=== PATIENT | female | born 1940 | race Caucasian/White ===

== ENCOUNTER 2020-11-04 13:02 | Outpatient (CLI) | payer MEDICARE, SELFPAY ==
--- NOTE | ~2020-11-04 | XR_ITS ---
EXAMINATION: XR chest 2V DATE: 11/04/2020 12:50 INDICATION: Chest pain, unspecified TECHNIQUE: PA and lateral views of the chest are obtained. COMPARISON: 06/18/2014 FINDINGS: The lungs are free of acute opacities. There is no pleural effusion or pneumothorax. Cardio megaly is noted. Median sternotomy wires and mediastinal surgical clips are seen, likely from prior c oronary artery bypass grafting. A coronary artery stent is also noted. There are bridging osteophytes at multiple levels in the spine, consistent with diffuse idiopathic skeletal hyperostosis (DISH). IMPRESSION: 1. No acute cardiopulmonary abnormality. Reviewed, dictated and finalized at location A.
[2020-11-04 13:44] LABS: Basophils Percent Auto 0.4 % (0.2-1.2); Eosinophils Absolute Auto 0.1 K/mm3 (0-0.3); Eosinophils Percent Auto 1.8 % (0-4.4); Hemoglobin 12.9 g/dL (12.0-15.0); Immature Granulocyte Absolute 0.01 K/mm3 (0.00-0.031); Immature Granulocyte Percent A 0.2 % (0-0.5); Lymphocytes Absolute Auto 1.09 K/mm3 (0.9-3.2); Lymphocytes Percent Auto 22.1 % (18.3-44.2); Mean Corpuscular HGB Conc 32.3 g/dl (32-36); Mean Corpuscular Hemoglobin 29.9 pg (26-34); Mean Corpuscular Volume 92.6 fl (80-100); Mean Platelet Volume 9.8 fl (7.4-10.4); Monocytes Absolute Auto 0.3 K/mm3 (0.1-0.6); Monocytes Percent Auto 6.9 % (2.6-8.5); Neutrophils Absolute Auto 3.4 K/mm3 (1.3-6.7); Neutrophils Percent Auto 68.6 % (45.5-73.1); Platelet Count Result 174 k/mm3 (150-375); Red Blood Count 4.32 M/mm3 (4.2-5.4); Red Cell Distribution Width 13.5 % (11.5-14.5); White Blood Count 4.9 K/mm3 (4.5-10.0)
[2020-11-04 13:57] LABS: Alanine Aminotransferase 40 U/L (4-35); Albumin Level 4.3 g/dL (3.5-5.1); Alkaline Phosphatase 54 U/L (38-126); Anion Gap 6 mmol/L (8-16); Aspartate Amino Transferase 35 U/L (14-36); Bilirubin,Total 0.5 mg/dL (0.2-1.3); Blood Urea Nitrogen 27 mg/dL (7-17); Calcium 9.8 mg/dL (8.4-10.2); Carbon Dioxide 29 mmol/L (22-30); Chloride 103 mmol/L (98-107); Cholesterol 149 mg/dL (0-200); Estimated Glomerular Filt Rate 43; Glucose 113 mg/dL (65-105); HDL Direct 60 mg/dL; Potassium 4.7 mmol/L (3.4-5.0); Sodium 138 mmol/L (137-145); Triglycerides 101 mg/dL (<150)
[2020-11-04 14:07] LABS: LDL Cholesterol Direct 63 mg/dL
[2020-11-04 15:07] LABS: Vitamin D 25 Hydroxy 28.4 ng/mL
== END 2020-11-04 13:03 | disposition home or self-care (01) ==
PROVIDERS: PCP Internal Medicine; Visit Provider Nurse Practitioner
DX: R07.9 Chest pain, unspecified (principal); I10 Essential (primary) hypertension; E78.00 Pure hypercholesterolemia, unspecified; E55.9 Vitamin D deficiency, unspecified; R53.83 Other fatigue
CPT/HCPCS: 36415; 71046; 80053; 80061; 82306; 84443; 85025

== ENCOUNTER → 2020-12-22 14:19 | Outpatient (CLI) | payer MEDICARE, SELFPAY ==
--- NOTE | ~2020-12-22 | MM_ITS ---
EXAMINATION: MM screening william BI w ariel HISTORY: Screening mammogram TECHNIQUE: Craniocaudal and mediolateral oblique 3-D tomosynthesis images were obtained and synthetic 2-D images were generated. CAD analysis was submitted and interpreted. COMPARISON: 10/03/2017, 09/07/2016, 07/11/2015 bilateral digital screening mammogram examinations BREAST PARENCHYMAL COMPOSITION: The breasts are extremely dense, which lowers the sensitivity of mamm ography. FINDINGS: Numerous scattered bilateral benign calcifications. There is no evidence of suspicious mass , calcification, or architectural distortion to suggest malignancy in either breast. There has been n o suspicious interval change. IMPRESSION: 1. No mammographic evidence of malignancy. 2. Recommend routine screening mammography in one year. BI-RADS Category 2: Benign finding(s). Reviewed, dictated and finalized at location A.
== END ==
PROVIDERS: Visit Provider Nurse Practitioner
DX: Z12.31 Encounter for screening mammogram for malignant neoplasm of breast (principal)
CPT/HCPCS: 77063; 77067

== ENCOUNTER 2021-03-11 11:00 | Outpatient (RCR) | payer MEDICARE, SELFPAY ==
--- NOTE | 2021-02-02 13:53 | PTOPEVAL ---
PHYSICAL THERAPY EVALUATION Thank you for referring Chiquis Lindsay to [facility].? Chiquis was evaluated for the dx of vertigo/possible BPPV. The patient is scheduled to be seen for therapy? 1 x/week for 4 weeks. Please review, sign, date and return this plan of care DEQUAN. I agree with and certify that the following plan of care is medically necessary. Referring Physician Date Attending Provider: Jr Rice MD *PT Outpatient Evaluation Start: 02/02/21 12:29 Freq: Status: Active Protocol: Document 02/02/21 12:29 MLV (Rec: 02/02/21 13:39 MLV [id number]) Therapy Assessment Status Assessment Status Assessment Status Evaluation Evaluation Information Problem Diagnosis vertigo/BPPV Onset 09/21 Cause no known cause Additional Evaluation Detail The pt reports having her first vertigo episode 25 yrs ago but lasted only seconds. At the same she was diagnosed with visual migraines. The patient has had 4-6 episodes a year until the last 6-12 months. The patient has a marked increased in episodes since September, occurring 3-10 per month. The patient also reports continued LAGUERRE's that are a pressure around her eyes. Patient also gets a LAGUERRE every time after a bout of vertigo. The patient also reports occasions where she feels off balance. Subjective Information The patient is retired but Query Text:As Reported By Patient/ very active and now fears Family driving for concern of having a dizzy spell. Previous Treatments Previous Treatments For This Problem none Prior Level of Function Home Setting Home Type House,Multiple Levels Environmental Barriers Railing, Ascend Right Living Situation Alone Support Available None Mobility Assistive Devices (Used Last 3 None Months) Pain Assessment Timing of Pain Assessment Timing of Pain Assessment Assessment Self Report Self Report Pain Level 0 Pain Score Pain Score 0: Self Report Cervical and Lumbar ROM Cervical ROM Cervical Flexion (0-60) 40 Query Text:Active in Degrees Cervical Extension (0-70) 10 Query Text:Passive in Degrees Cervical Lateral Flexion Right (0-50)
--- NOTE | 2021-02-11 15:00 | PCPTNOTE ---
Patient came to appt at wrong time. Appt cancelled due to re-scheduling limits. Pt to come to next appt. scheduled
--- NOTE | 2021-03-11 12:35 | PTOPEVAL ---
PHYSICAL THERAPY DISCHARGE Thank you for referring Chiquis Lindsay to [facility].? The patient has completed 5 visits for the dx of dizziness. Goals are partially met and peaked with skilled PT. DC PT. Please review, sign, date and return this plan of care DEQUAN. I agree with and certify that the following plan of care is medically necessary. Referring Physician Date Attending Provider: Jr Rice MD *PT Outpatient Discharge Start: 02/02/21 12:29 Freq: Status: Active Protocol: Document 03/11/21 11:00 MLV (Rec: 03/11/21 12:35 MLV [id number]) Therapy Assessment Status Assessment Status Assessment Status Discharge Evaluation Information Problem Diagnosis vertigo/BPPV Onset 09/21 Cause no known cause Additional Evaluation Detail The patient reports a decrease in her migraine frequency and feels her dizzy events are more controlled but is still having some. The patient feels it is related to her eye tracking deficit in combination with her sinus issues. The pt plans to continue her eye exercises and continue taking her sinus meds. The patient has a follow up appt with her MD this month. Pain Assessment Timing of Pain Assessment Timing of Pain Assessment Assessment Pain Scale Pain Scale Used Numeric (1 - 10) Self Report Pain Assessment Bilateral Head Reported Pain Level 1 Pain Score Pain Score 1: Self Report Interventions Used Interventions Used By Clinicians Education,Exercise Pain Relief Interventions Used By Exercise,Position Change Patient Balance Assessment Crawley Balance Assessment Sitting to Standing Independent w/out Hands Unsupported Stance Ability Safely- 2 minutes Sitting Unsupported, Feet on Floor Safely- 2 minutes Standing to Sitting Safely, Minimal Hand Use Transfer Ability Safely, Minimal Hand Use Unsupported Stance- Eyes Closed Safely, 10 seconds Unsupported Stance- Feet Together Independent, 1 minute Reaching Forward while Standing Confidently, 10 inches project superintendent Object From Floor Independent/Safe Look Behind Shoulder - Standing Shifts Weight Well Turning 360 Degrees Turns Bilateral, < 4 secs Unsupported Stance, Alternating Feet on 4 Steps w/Supervision Stair Unsupported Tandem Stance Holds Tandem- 30 seconds Unilateral Leg Stance
== END 2021-03-12 08:56 | disposition home or self-care (01) ==
LOC: ANHPT 11:00
PROVIDERS: PCP Internal Medicine; Visit Provider Otolaryngology
DX: H81.10 Benign paroxysmal vertigo, unspecified ear (principal)
CPT/HCPCS: 97110; 97162

== ENCOUNTER 2021-03-21 10:39 | Outpatient (CLI) | payer MEDICARE, SELFPAY ==
--- NOTE | ~2021-03-21 | MR_ITS ---
EXAMINATION: MR brain/brain stem wo/w con DATE: 03/21/2021 12:03 INDICATION: Dizziness and giddiness. TECHNIQUE: Magnetic resonance imaging (MRI) of the brain and brainstem was performed without and with 13 mL MultiHance intravenous contrast. Sequences included sagittal and axial T1-weighted FSE, axial diffusion-weighted FS EPI, axial T2*-weighted GRE, axial T2-weighted FLAIR Propeller, and axial T2-we ighted Propeller. Postcontrast sequences included axial and coronal T1-weighted FSE. Apparent diffusi on coefficient (ADC) maps were created. COMPARISON: Brain MRI 02/11/2008 FINDINGS: There are scattered areas of nonspecific increased T2-weighted signal intensity in the cere bral white matter. There is no intracranial hemorrhage, acute infarction, or abnormal intracranial ma ss lesion. The ventricles are normal in size. There is mucosal thickening in the paranasal sinuses. T here is chronic complete opacification of left sphenoid sinus. There are likely changes of ocular joan s replacement surgeries. The mastoid air cells are normal. IMPRESSION: 1. Worsened moderate nonspecific cerebral white matter disease, which likely represents chronic small vessel ischemic disease. Reviewed, dictated and finalized at location A. IMPRESSION: 1. Worsened moderate nonspecific cerebral white matter disease, which likely re presents chronic small vessel ischemic disease.
[2021-03-21 11:34] LABS: Estimated Glomerular Filt Rate 48
== END 2021-03-21 10:40 | disposition home or self-care (01) ==
LOC: ANHIMG 10:40
PROVIDERS: PCP Internal Medicine; Visit Provider Nurse Practitioner
DX: R42 Dizziness and giddiness (principal)
CPT/HCPCS: 70553; A9577

== ENCOUNTER 2021-04-29 00:45 | Day surgery (SDC) | payer MEDICARE, SELFPAY ==
[2021-04-15 09:41] VITALS: BMI 25.8
--- NOTE | 2021-04-28 09:31 | WPDANESEPPF ---
Anes - Initial Pre Proc Eval Procedure: Operation Date: 04/29/21 09:30 Proposed Procedures p Colonoscopy - Jose Borrero MD Date/Time: 04/28/21 09:31 Surgeon: Jose Borrero MD Pre Op Diagnosis: positive cologuard Patient Data Age: 80 Gender: F Height: 1.63 m Weight: 68.2 kg Allergies Allergy/AdvReac Type Severity Reaction Status Date / Time chlorpheniramine Allergy Mild ITCHING Verified 04/29/21 08:39 hydrocodone Allergy Mild ITCHING Verified 04/29/21 08:39 guaifenesin Allergy Unknown unknown Verified 04/29/21 08:39 [From [facility] Expectorant] Grass Allergy Unknown Sneezing Uncoded 04/29/21 08:39 Home Medications Medication Instructions Recorded Confirmed Type amlodipine 10 mg tablet 10 mg PO DAILY 08/22/19 04/15/21 History aspirin 81 mg tablet,delayed 81 mg PO DAILY 08/22/19 04/15/21 History release atenolol 50 mg tablet 50 mg PO DAILY 08/22/19 04/15/21 History atorvastatin 40 mg tablet 40 mg PO DAILY 08/22/19 04/15/21 History cholecalciferol (vitamin D3) 125 5,000 unit PO .QOD cap 08/22/19 04/15/21 History mcg (5,000 unit) capsule famotidine 20 mg tablet 20 mg PO PRN PRN 08/22/19 04/15/21 History fexofenadine 180 mg tablet 180 mg PO DAILY 08/22/19 04/15/21 History lisinopril 40 mg tablet 40 mg PO DAILY 08/22/19 04/15/21 History alendronate 70 mg tablet 70 mg PO WEEKLY #12 tablet 02/10/21 04/15/21 Rx furosemide 20 mg tablet 10 mg PO DAILY #15 tablet 03/30/21 04/15/21 Rx Patient hx anesthesia problems: none Family hx anesthesia problems: none Results Review: All pre-operative results and documents have been reviewed as part of the pre-operative evaluation. [facility] Past Medical History Medical History (Updated 04/28/21 @ 13:29 by Jose Borrero MD) Allergies Arthritis Bilateral knee effusions CAD (coronary artery disease) Colitis Dizziness Essential hypertension GERD (gastroesophageal reflux disease) High cholesterol History of anesthesia reaction History of SC (myocardial infarction) HLD (hyperlipidemia) HTN (hypertension) IBS (irritable bowel syndrome) Left knee DJD Osteoporosis Positive colorectal cancer screening using Cologuard test Seasonal allergies Vertigo Surgical History Surgical History History of breast biopsy History of cataract surgery Bilateral 2019 Hx of CABG 1999 Family History Family History Father Myocardial infarction Mother Parkinson disease Father Acute myocardial infarction, Onset Age: 69 Other Heart disease Hypertension Social History Social History Smoking status: Never smoker Alcohol intake: current Alcohol use details: wine every few months Substance use: never Substance use type: does not use Living arrangements: alone Spiritual care concerns: No Anes - Eval Final PreProcedure Day of Procedure 04/28/21 09:31 Patient weight: overweight Heart: regular rate and rhythm Lungs: clear to auscultation and normal air movement Airway: Mallampati scale class II Neurological: alert and oriented Last oral intake: >/= 8 hours ASA classification: III Emergent: no Anesthetic plan: proceed Anesthesia type and monitoring: general GIVS and standard monitoring Results Review: All pre-operative results and documents have been reviewed as part of the pre-operative evaluation. Informed Consent: The patient's anesthetic plan and its attendant risks and benefits were discussed with the patient/family/POA. Questions were solicited and answers provided to the satisfaction of the patient/family/POA.
--- NOTE | 2021-04-28 13:28 | PM.HPGS ---
History of Present Illness History of Present Illness Consent: Risks, benefits, and alternatives have been discussed and questions answered. Patient agrees to proceed with procedure. Chief complaint: positive cologuard Narrative: Chiquis Lindsay is a 80 year old female Referred for colon cancer screening. Her last colonoscopy was 10 years ago Review of Systems Review of Systems: All systems reviewed & are unremarkable except as noted in HPI and below PMFSH Past Medical History Medical History Allergies Arthritis Bilateral knee effusions CAD (coronary artery disease) Colitis Dizziness Essential hypertension GERD (gastroesophageal reflux disease) High cholesterol History of anesthesia reaction History of CA (myocardial infarction) HLD (hyperlipidemia) HTN (hypertension) IBS (irritable bowel syndrome) Left knee DJD Osteoporosis Positive colorectal cancer screening using Cologuard test Seasonal allergies Vertigo Surgical History Surgical History History of breast biopsy History of cataract surgery Bilateral 2019 Hx of CABG 1998 Family History Family History Father Myocardial infarction Mother Parkinson disease Father Acute myocardial infarction, Onset Age: 69 Other Heart disease Hypertension Social History Social History Smoking status: Never smoker Alcohol intake: current Alcohol use details: wine every few months Substance use: never Substance use type: does not use Living arrangements: alone Spiritual care concerns: No Meds Home Medications and Allergies Home Medications Medication Instructions Recorded Confirmed Type amlodipine 10 mg tablet 10 mg PO DAILY 08/22/19 04/15/21 History aspirin 81 mg tablet,delayed 81 mg PO DAILY 08/22/19 04/15/21 History release atenolol 50 mg tablet 50 mg PO DAILY 08/22/19 04/15/21 History atorvastatin 40 mg tablet 40 mg PO DAILY 08/22/19 04/15/21 History cholecalciferol (vitamin D3) 125 5,000 unit PO .QOD cap 08/22/19 04/15/21 History mcg (5,000 unit) capsule famotidine 20 mg tablet 20 mg PO PRN PRN 08/22/19 04/15/21 History fexofenadine 180 mg tablet 180 mg PO DAILY 08/22/19 04/15/21 History lisinopril 40 mg tablet 40 mg PO DAILY 08/22/19 04/15/21 History alendronate 70 mg tablet 70 mg PO WEEKLY #12 tablet 02/10/21 04/15/21 Rx furosemide 20 mg tablet 10 mg PO DAILY #15 tablet 03/30/21 04/15/21 Rx Allergies Allergy/AdvReac Type Severity Reaction Status Date / Time chlorpheniramine Allergy Mild ITCHING Verified 04/29/21 08:39 hydrocodone Allergy Mild ITCHING Verified 04/29/21 08:39 guaifenesin Allergy Unknown unknown Verified 04/29/21 08:39 [From [facility] Expectorant] Grass Allergy Unknown Sneezing Uncoded 04/29/21 08:39 Exam Resp: Auscultation: clear to auscultation bilaterally Cardio: Rate: regular rate Rhythm: regular rhythm GI: GI Palp: Yes Soft to palpation and No Tenderness to palpation present (GI) Assessment and Plan Assessment and plan (1) Colon cancer screening: Code(s): Z12.11 - Encounter for screening for malignant neoplasm of colon Status: Acute Assessment and Plan: Colonoscopy with possible biopsy or polypectomy or cautery or injection of substances.
[2021-04-29 08:42] VITALS: BP 131/66; PULSE 61; RESP 18; TEMP 37; O2SAT 96; BMI 25.0
[2021-04-29] MEDS: LACTATED RINGERS 1,000 ML 150 ML IV CONT (08:45)
[2021-04-29 09:50] VITALS: BP 71/38; PULSE 48; RESP 15; O2SAT 99
[2021-04-29 09:52] VITALS: BP 88/44; PULSE 54; RESP 19; O2SAT 99
[2021-04-29 10:00] VITALS: BP 103/50; PULSE 54; RESP 21; O2SAT 98
[2021-04-29 10:10] VITALS: BP 129/58; PULSE 53; RESP 23; O2SAT 95
== END 2021-04-29 10:25 | disposition home or self-care (01) ==
PROVIDERS: PCP Internal Medicine; Visit Provider Internal Medicine Gastroenterology
PROC: 0DJD8ZZ Inspection of Lower Intestinal Tract, Via Natural or Artificial Opening Endoscopic (ICD-10-PCS; CPT 45378; principal; 2021-04-29 09:30)
DX: Z12.11 Encounter for screening for malignant neoplasm of colon (principal); K57.30 Diverticulosis of large intestine without perforation or abscess without bleeding; D12.5 Benign neoplasm of sigmoid colon; R19.5 Other fecal abnormalities; M19.90 Unspecified osteoarthritis, unspecified site; I25.10 Atherosclerotic heart disease of native coronary artery without angina pectoris; I10 Essential (primary) hypertension; K21.9 Gastro-esophageal reflux disease without esophagitis; E78.00 Pure hypercholesterolemia, unspecified; I25.2 Old myocardial infarction; E78.5 Hyperlipidemia, unspecified; K58.9 Irritable bowel syndrome, unspecified; M81.0 Age-related osteoporosis without current pathological fracture; Z95.1 Presence of aortocoronary bypass graft; Z79.82 Long term (current) use of aspirin
CPT/HCPCS: 45385; 88305; J2704; J7120

== ENCOUNTER 2021-05-23 07:04 | Emergency (ER) | payer MEDICARE, SELFPAY ==
[2021-05-23] VITALS (12 sets, daily range): BP systolic 134–159; BP diastolic 54–66; PULSE 68–87; RESP 14–24; TEMP 36.3; O2SAT 96–100
--- NOTE | 2021-05-23 07:26 | ED.GIBLEED ---
HPI - GI Bleed General Chief complaint: GI Bleed Stated complaint: bleeding from rectum Time Seen by Provider: 05/23/21 07:14 Source: patient Mode of arrival: ambulatory Limitations: no limitations History of Present Illness HPI Narrative: Patient is an 80-year-old female complaining of diarrhea and blood in her stool that started yesterday after eating salad for lunch at a restaurant. Patient denies any history of GI bleed in the past. Patient states that she recently had a colonoscopy approximately a month ago, was told it was clear. Patient states that today there is only blood when she wipes. Patient denies any abdominal pain, nausea, vomiting, hematemesis, hemoptysis, melena, fever or chills. Related Data Home Medications Medication Instructions Recorded Confirmed amlodipine 10 mg tablet 10 mg PO DAILY 08/22/19 04/15/21 aspirin 81 mg tablet,delayed 81 mg PO DAILY 08/22/19 04/15/21 release atenolol 50 mg tablet 50 mg PO DAILY 08/22/19 04/15/21 atorvastatin 40 mg tablet 40 mg PO DAILY 08/22/19 04/15/21 cholecalciferol (vitamin D3) 125 5,000 unit PO .QOD cap 08/22/19 04/15/21 mcg (5,000 unit) capsule famotidine 20 mg tablet 20 mg PO PRN PRN 08/22/19 04/15/21 fexofenadine 180 mg tablet 180 mg PO DAILY 08/22/19 04/15/21 lisinopril 40 mg tablet 40 mg PO DAILY 08/22/19 04/15/21 Allergies Allergy/AdvReac Type Severity Reaction Status Date / Time chlorpheniramine Allergy Mild ITCHING Verified 04/29/21 08:39 hydrocodone Allergy Mild ITCHING Verified 04/29/21 08:39 guaifenesin Allergy Unknown unknown Verified 05/23/21 07:38 [facility] Grass Allergy Unknown Sneezing Uncoded 05/23/21 07:38 Review of Systems Review of Systems: All systems reviewed & are unremarkable except as noted in HPI and below Constitutional: Constitutional: Denies body ache(s), Denies chills, Denies excessive sweating, Denies fatigue, Denies fever(s), Denies headache(s), Denies lethargy, Denies malaise, Denies weakness and Denies weight loss Eyes: Eyes: Denies blurry vision, Denies change in vision and Denies loss of vision ENT: Denies dizziness, Denies ear discharge, Denies headache(s), Denies lip swelling, Denies epistaxis, Denies nasal congestion, Denies neck pain, Denies throat swelling and Denies tongue swelling Cardiovascular: Cardiovascular: Denies chest pain, Denies chest pain at rest, Denies chest pain with activity, Denies diaphoresis, Denies rapid heart rate, Denies edema, Denies irregular heart rhythm, Denies lightheadedness, Denies palpitations, Denies dyspnea and Denies dyspnea on exertion Respiratory: Respiratory: Denies chest congestion, Denies cough, Denies hemoptysis, Denies dyspnea and Denies dyspnea on exertion Gastrointestinal: Gastrointestinal: Denies abdominal pain, Denies melena, Denies nausea, Denies vomiting and Denies hematemesis Musculoskeletal: Musculoskeletal: Denies abnormal gait, Denies deformity, Denies joint swelling, Denies limited range of motion, Denies neck pain and Denies numbness Neurologic: Denies Abnormal speech present, Denies abnormal gait, Denies confusion, Denies dizziness, Denies headache(s), Denies focal weakness, Denies loss of vision, Denies numbness, Denies Other visual disturbances, Denies Sensory deficit (Neuro) and Denies weakness Psychiatric: Psychiatric: Denies confusion, Denies depression, Denies auditory hallucinations, Denies homicidal ideation and Denies suicidal ideation Endocrine: Endocrine: Denies cold intolerance, Denies excessive sweating, Denies fatigue, Denies heat intolerance and Denies palpitations Hematologic/Lymphatic: Hematologic/Lymphatic: Denies easy bleeding and Denies easy bruising Allergic/Immunologic: Allergic/Immunologic: Denies lip swelling, Denies throat swelling and Denies tongue swelling PMFSH Past Medical History Medical History Allergies Arthritis Bilateral knee effusions CAD (lennon
[2021-05-23] MEDS: LACTATED RINGERS 1,000 ML 999 ML IV CONT (07:36)
[2021-05-23 07:37] LABS: Basophils Percent Auto 0.3 % (0.2-1.2); Eosinophils Absolute Auto 0.1 K/mm3 (0-0.3); Hemoglobin 13.2 g/dL (12.0-15.0); Immature Granulocyte Absolute 0.02 K/mm3 (0.00-0.031); Immature Granulocyte Percent A 0.3 % (0-0.5); Lymphocytes Absolute Auto 1.27 K/mm3 (0.9-3.2); Lymphocytes Percent Auto 21.1 % (18.3-44.2); Mean Corpuscular Hemoglobin 29.9 pg (26-34); Mean Corpuscular Volume 90.7 fl (80-100); Mean Platelet Volume 9.8 fl (7.4-10.4); Monocytes Absolute Auto 0.4 K/mm3 (0.1-0.6); Neutrophils Absolute Auto 4.2 K/mm3 (1.3-6.7); Neutrophils Percent Auto 69.3 % (45.5-73.1); Platelet Count Result 156 k/mm3 (150-375); Red Blood Count 4.41 M/mm3 (4.2-5.4); Red Cell Distribution Width 13.2 % (11.5-14.5)
[2021-05-23 07:48] LABS: Alanine Aminotransferase 29 U/L (4-35); Albumin Level 4.3 g/dL (3.5-5.1); Alkaline Phosphatase 68 U/L (38-126); Anion Gap 8 mmol/L (8-16); Aspartate Amino Transferase 27 U/L (14-36); Bilirubin,Total 0.9 mg/dL (0.2-1.3); Blood Urea Nitrogen 20 mg/dL (7-17); Calcium 9.4 mg/dL (8.4-10.2); Carbon Dioxide 24 mmol/L (22-30); Chloride 104 mmol/L (98-107); Estimated CRCL calculation 33 ml/min; Estimated Glomerular Filt Rate 53; Glucose 124 mg/dL (65-110); Potassium 3.8 mmol/L (3.4-5.0); Sodium 136 mmol/L (137-145)
[2021-05-23 07:49] LABS: INR 0.9
== END 2021-05-23 09:47 | disposition home or self-care (01) ==
PROVIDERS: Emergency Provider Emergency Medicine; PCP Internal Medicine
DX: K52.9 Noninfective gastroenteritis and colitis, unspecified (principal); K62.5 Hemorrhage of anus and rectum; I25.10 Atherosclerotic heart disease of native coronary artery without angina pectoris; I10 Essential (primary) hypertension; I21.9 Acute myocardial infarction, unspecified; E78.00 Pure hypercholesterolemia, unspecified; I25.2 Old myocardial infarction; E78.5 Hyperlipidemia, unspecified; K58.9 Irritable bowel syndrome, unspecified; M19.90 Unspecified osteoarthritis, unspecified site; M81.0 Age-related osteoporosis without current pathological fracture; Z95.1 Presence of aortocoronary bypass graft; Z98.42 Cataract extraction status, left eye; Z98.41 Cataract extraction status, right eye; Z96.1 Presence of intraocular lens
CPT/HCPCS: 36415; 80053; 85025; 85610; 85730; 96360; 99283; J7120

== ENCOUNTER → 2021-06-09 11:10 | Outpatient (CLI) | payer MEDICARE, SELFPAY ==
--- NOTE | ~2021-06-09 | DEXA_ITS ---
Bone Density Report Name: DIEGO PINTO Age: 80 Sex: Female Ethnicity: White Date of : 1940 Indication: osteopenia; monitoring treatment; height loss; prior fracture; postmenopausal Referring Provider: Barbie Barreto Study: Bone densitometry was performed. Exam Date: June 09, 2021 Accession number: [id number] Bone Density: Region BMD T-score Z-score Classification AP Spine (L1-L4) 1.023 -0.2 2.6 Normal Femoral Neck (Left) 0.587 -2.4 0.1 Osteopenia Total Hip (Left) 0.787 -1.3 0.9 Osteopenia Femoral Neck (Right) 0.577 -2.4 0.0 Osteopenia Total Hip (Right) 0.715 -1.9 0.4 Osteopenia Total Hip Mean 0.751 -1.6 0.7 Osteopenia World Health Organization criteria for BMD impression classify patients as: Normal (T-score at or above -1.0), Osteopenia (T-score between -1.0 and -2.5), or Osteoporosis (T-score at or below -2.5). 10-year Fracture Risk: FRAX not reported because: Treated for osteoporosis Previous Exams: Region Exam Age BMD T-score BMD Change BMD Change Date g/cm2 vs Baseline vs Previous AP Spine(L1-L4) 06/09/2021 80 1.023 -0.2 0.032* 0.025* 04/04/2017 76 0.998 -0.4 0.007 0.007 05/22/2014 73 0.991 -0.5 Total Hip(Left) 06/09/2021 80 0.787 -1.3 -0.041* -0.007 04/04/2017 76 0.793 -1.2 -0.035* -0.035* 05/22/2014 73 0.828 -0.9 Total Hip(Right) 06/09/2021 80 0.715 -1.9 -0.023 0.015 04/04/2017 76 0.700 -2.0 -0.038* -0.038* 05/22/2014 73 0.738 -1.7 *Denotes significance at 95% confidence level, LSC for AP Spine = 0.022 g/cm2, LSC for Total Hip = 0.027 g/cm2 Clinical Information Provided by Patient: Has had a low trauma fracture Is being treated for osteoporosis Has used the following medications: Fosamax (i.e. alendronate), Vitamin D Patient maximum height was 65.5 Menopause Age: 53 No regular weight bearing exercise Drinks caffeinated beverages Onset of menses at age 11 Number of children 1 Impression: The patient has low bone mass, based on the Left Femoral Neck T-score. The patient has risk factors, including: previous fracture. No significant bone loss was observed. Discussion: PATIENT UNDER TREATMENT WITH NO SIGNIFICANT BMD LOSS SINCE LAST EXAM. In an untreated patient, BMD typically declines with age. A lack of decline or gain is usually a sign that treatment is efficacious and fractu
== END ==
PROVIDERS: PCP Internal Medicine; Visit Provider Nurse Practitioner
DX: Z78.0 Asymptomatic menopausal state (principal); M85.89 Other specified disorders of bone density and structure, multiple sites
CPT/HCPCS: 77080

== ENCOUNTER 2023-06-07 11:45 | Outpatient (CLI) | payer MEDICARE, SELFPAY ==
[2023-06-07 19:35] LABS: Alanine Aminotransferase 45 U/L (6-35); Albumin Level 4.5 g/dL (3.5-5.1); Alkaline Phosphatase 56 U/L (38-126); Anion Gap 9 mmol/L (8-16); Aspartate Amino Transferase 41 U/L (14-36); Bilirubin,Total 0.5 mg/dL (0.2-1.3); Blood Urea Nitrogen 23 mg/dL (7-17); Calcium 9.6 mg/dL (8.4-10.2); Carbon Dioxide 30 mmol/L (22-30); Chloride 101 mmol/L (98-107); Cholesterol 143 mg/dL (0-200); Estimated Glomerular Filt Rate 53; Glucose 78 mg/dL (65-110); HDL Direct 67 mg/dL; Potassium 4.3 mmol/L (3.4-5.0); Sodium 140 mmol/L (137-145); Triglycerides 91 mg/dL (<150)
[2023-06-07 19:46] LABS: LDL Cholesterol Direct 59 mg/dL
[2023-06-07 20:06] LABS: Vitamin D 25 Hydroxy 16.4 ng/mL
[2023-06-07 20:56] LABS: Basophils Percent Auto 0.8 % (0.2-1.2); Eosinophils Absolute Auto 0.3 K/mm3 (0-0.3); Eosinophils Percent Auto 5.2 % (0-4.4); Hematocrit 39.2 % (37.0-47.0); Hemoglobin 12.4 g/dL (12.0-15.0); Immature Granulocyte Absolute 0.01 K/mm3 (0.00-0.031); Immature Granulocyte Percent A 0.2 % (0-0.5); Lymphocytes Absolute Auto 1.06 K/mm3 (0.9-3.2); Lymphocytes Percent Auto 21.3 % (18.3-44.2); Mean Corpuscular HGB Conc 31.6 g/dl (32-36); Mean Corpuscular Hemoglobin 28.9 pg (26-34); Mean Corpuscular Volume 91.4 fl (80-100); Mean Platelet Volume 11.5 fl (7.4-10.4); Monocytes Absolute Auto 0.5 K/mm3 (0.1-0.6); Monocytes Percent Auto 9.3 % (2.6-8.5); Neutrophils Absolute Auto 3.1 K/mm3 (1.3-6.7); Neutrophils Percent Auto 63.2 % (45.5-73.1); Platelet Count Result 177 k/mm3 (150-375); Red Blood Count 4.29 M/mm3 (4.2-5.4); Red Cell Distribution Width 13.6 % (11.5-14.5)
== END 2023-06-07 11:46 | disposition home or self-care (01) ==
LOC: ANHGOSHLAB 11:48
PROVIDERS: PCP Internal Medicine; Visit Provider Nurse Practitioner
DX: E55.9 Vitamin D deficiency, unspecified (principal); E78.00 Pure hypercholesterolemia, unspecified; E78.5 Hyperlipidemia, unspecified; R94.4 Abnormal results of kidney function studies; R53.83 Other fatigue
CPT/HCPCS: 36415; 80053; 80061; 82306; 85025

== ENCOUNTER 2023-07-21 01:37 | Emergency (ER) | payer MEDICARE, SELFPAY ==
[2023-07-21 01:53] VITALS: BP 172/50; PULSE 71; RESP 16; TEMP 36.6; O2SAT 97
[2023-07-21 03:05] VITALS: BP 170/55; PULSE 66; RESP 19; TEMP 36.6; O2SAT 99
[2023-07-21 04:02] VITALS: BP 156/57; PULSE 70; RESP 16; O2SAT 98
[2023-07-21 05:24] VITALS: BP 165/60; PULSE 88; RESP 16; O2SAT 99
--- NOTE | 2023-07-21 05:56 | ED.BACK ---
HPI - Back Pain/Injury General Chief Complaint: Back Pain/Injury Stated Complaint: sciatic pain Time Seen by Provider: 07/21/23 04:45 Source: patient Limitations: no limitations History of Present Illness HPI Narrative: patient is an 82-year-old female present to the emergency department complaining of my sciatica . Patient states she has been dealing with sciatica since May and her sciatica as described as a shooting pain radiating from her right lower back down the lateral aspect of her leg it wraps around to the front of her distal lower leg and normally to the top of the foot. Patient states she has been taking Tylenol, pain patches, and also getting PT and OT for this regularly and last had PT and OT yesterday. Patient states that overall it just has not gone away and she wants to get this taking care of as it seems to be getting progressively more painful. Patient denies any recent injuries or recent illness. Patient denies urinary const stool incontinence, saddle anesthesia, numbness, weakness, history of IV drug use, history of cancer, use of blood thinners, chest pain, difficulty breathing, abdominal pain, urinary discomfort, hematuria, history of kidney stones, diarrhea, melena, hematochezia, rash. Patient typically uses a cane to ambulate. Patient denies history of seeing a spinal specialist or ever having MRIs of her back. Related Data Home Medications Medication Instructions Recorded Confirmed amlodipine 10 mg tablet 10 mg PO DAILY 08/22/19 06/07/23 aspirin 81 mg tablet,delayed 81 mg PO DAILY 08/22/19 06/07/23 release (Adult Low Dose Aspirin) atenolol 50 mg tablet 50 mg PO DAILY 08/22/19 06/07/23 atorvastatin 40 mg tablet 40 mg PO DAILY 08/22/19 06/07/23 famotidine 20 mg tablet (Pepcid) 20 mg PO PRN PRN Heartburn 08/22/19 06/07/23 fexofenadine 180 mg tablet 180 mg PO DAILY 08/22/19 06/07/23 (Maude Allergy) lisinopril 40 mg tablet 40 mg PO DAILY 08/22/19 06/07/23 cholecalciferol (vitamin D3) 125 5,000 unit PO DAILY 05/27/21 06/07/23 mcg (5,000 unit) capsule amitriptyline 10 mg tablet 10 mg PO QHS 06/14/22 06/07/23 furosemide 20 mg tablet 10 mg PO DAILY 06/14/22 06/07/23 Allergies Allergy/AdvReac Type Severity Reaction Status Date / Time chlorpheniramine Allergy Mild ITCHING Verified 06/07/23 11:19 hydrocodone Allergy Mild ITCHING Verified 06/07/23 11:19 guaifenesin Allergy Unknown unknown Verified 06/07/23 11:19 [From [facility] Expectorant] Grass Allergy Unknown Sneezing Uncoded 06/07/23 11:19 Review of Systems Review of Systems: A 10 system review of systems was completed on the patient and is negative except for what is stated in the HPI. Nursing and ancillary documentation was reviewed. [facility] Past Medical History Medical History (Updated 07/21/23 @ 05:58 by Mart Caban DO) Allergies Arthritis Bilateral knee effusions CAD (coronary artery disease) Colitis Dizziness Essential hypertension GERD (gastroesophageal reflux disease) High cholesterol History of anesthesia reaction History of [place] (myocardial infarction) HLD (hyperlipidemia) HTN (hypertension) IBS (irritable bowel syndrome) Left knee DJD Osteoporosis Positive colorectal cancer screening using Cologuard test Seasonal allergies Vertigo Surgical History Surgical History (Updated 06/07/23 @ 11:22 by Nanci Fabian CMA) H/O heart artery stent History of breast biopsy History of cataract surgery Bilateral 2019 Hx of CABG 1998 Family History Family History Father Myocardial infarction Mother Parkinson disease Father Acute myocardial infarction, Onset Age: 69 Other Heart disease Hypertension Social History Social History Smoking status: Never smoker Alcohol intake: current Alcohol use details: wine every few months Substance use: never Substance use type: does not u
[2023-07-21] MEDS: diazePAM (*CRX) 5 MG TABLET PO (06:02)
== END 2023-07-21 06:15 | disposition home or self-care (01) ==
PROVIDERS: Emergency Provider Student in an Organized Health Care Education/Training Program; PCP Internal Medicine
DX: M54.16 Radiculopathy, lumbar region (principal); M54.41 Lumbago with sciatica, right side; I25.2 Old myocardial infarction; I10 Essential (primary) hypertension; E78.00 Pure hypercholesterolemia, unspecified; K21.9 Gastro-esophageal reflux disease without esophagitis; M17.12 Unilateral primary osteoarthritis, left knee; M81.0 Age-related osteoporosis without current pathological fracture; Z79.82 Long term (current) use of aspirin; Z95.5 Presence of coronary angioplasty implant and graft; Z95.1 Presence of aortocoronary bypass graft; Z98.42 Cataract extraction status, left eye; Z98.41 Cataract extraction status, right eye
CPT/HCPCS: 99283; A9270

== ENCOUNTER 2023-08-24 16:44 | Emergency (ER) | payer MEDICARE, SELFPAY ==
--- NOTE | ~2023-08-24 | XR_ITS ---
EXAMINATION: 1. XR hand RT min 3V 2. XR wrist RT min 3V DATE: 08/24/2023 17:03 INDICATION: Right hand pain and swelling. Fall. TECHNIQUE: 3 views of right hand and 4 views of right wrist were obtained. COMPARISON: None. FINDINGS: RIGHT WRIST: There is a comminuted fracture of distal radius with involvement of the distal articular surface. The main distal fracture fragment demonstrates impaction and dorsal angulation. There is 15 degrees dorsal tilt of the distal articular surface. There is a comminuted fracture of the ulnar sty loid. There is mild osteoarthritis of triscaphe joint and first carpometacarpal joint. RIGHT HAND: Again seen are the fractures of the distal radius and ulna. There is severe osteoarthriti s of first interphalangeal joint and second though fifth distal interphalangeal joints. There is mild osteoarthritis of some of the proximal interphalangeal joints. IMPRESSION: 1. Comminuted fracture of distal radius. 2. Comminuted fracture of ulnar styloid. 3. Polyarticular osteoarthritis. Reviewed, dictated and finalized at location E. N ROOM ASSEMBLER IMPRESSION: 1. Comminuted fracture of distal radius. 2. Comminuted fracture of ulnar styloid. 3. Polyarticular osteoarthritis.
[2023-08-24 16:45] VITALS: BP 130/61; PULSE 69; RESP 18; TEMP 37.3; O2SAT 95
--- NOTE | 2023-08-24 16:51 | ED.UPPEXIN ---
HPI - Extremity Injury (Upper) General Chief Complaint: Extremity Injury, Upper Stated Complaint: INJURED R HAND Time Seen by Provider: 08/24/23 16:51 Source: patient Mode of arrival: ambulatory Limitations: no limitations History of Present Illness HPI narrative: 82-year-old female presents with complaint of pain to left wrist. Patient has bruising and swelling to left hand and wrist. States that she fell 6 days ago, tripped over [employer]. On to outstretched left arm. Was able to get up on her own. No head injury, denies LOC. range of motion decreased due to pain and swelling, distal neurovascularly intact. All systems reviewed and negative except as noted above. Related Data Home Medications Medication Instructions Recorded Confirmed amlodipine 10 mg tablet 10 mg PO DAILY 08/22/19 08/24/23 aspirin 81 mg tablet,delayed 81 mg PO DAILY 08/22/19 08/24/23 release (Adult Low Dose Aspirin) atenolol 50 mg tablet 50 mg PO DAILY 08/22/19 08/24/23 atorvastatin 40 mg tablet 40 mg PO DAILY 08/22/19 08/24/23 fexofenadine 180 mg tablet 180 mg PO DAILY 08/22/19 08/24/23 (Maude Allergy) lisinopril 40 mg tablet 40 mg PO DAILY 08/22/19 08/24/23 cholecalciferol (vitamin D3) 125 5,000 unit PO DAILY 05/27/21 08/24/23 mcg (5,000 unit) capsule amitriptyline 10 mg tablet 10 mg PO QHS 06/14/22 08/24/23 furosemide 20 mg tablet 10 mg PO DAILY 06/14/22 08/24/23 gabapentin 100 mg capsule 100 mg PO TID 08/24/23 08/24/23 tramadol 50 mg tablet 50 mg PO TID PRN Pain (Scale Score 08/24/23 08/24/23 4-6) Allergies Allergy/AdvReac Type Severity Reaction Status Date / Time chlorpheniramine Allergy Mild ITCHING Verified 08/24/23 17:01 hydrocodone Allergy Mild ITCHING Verified 08/24/23 17:01 guaifenesin Allergy Unknown unknown Verified 08/24/23 17:01 [From [facility] Expectorant] Grass Allergy Unknown Sneezing Uncoded 08/24/23 17:01 Review of Systems Review of Systems: CONSTITUTIONAL: Denies fever, chills, or sweats. EYES: Denies visual changes, redness, or discharge. ENT: Denies rhinorrhea, congestion, sore throat, or otalgia. CARDIOVASCULAR: Denies chest pain, palpitations, or edema. RESPIRATORY: Denies cough or dyspnea. GASTROINTESTINAL: Denies abdominal pain, nausea, vomiting, or diarrhea. GENITOURINARY: Denies dysuria or hematuria. SKIN: Denies rash or itching. MUSCULOSKELETAL: Reports pain to left wrist with bruising and swelling. NEUROLOGIC: Denies headache, numbness, or weakness. PSYCHIATRIC: Denies anxiety or depression. All other systems reviewed are negative, except as documented in HPI. [facility] Past Medical History Medical History (Updated 08/24/23 @ 17:31 by Juhi Dominguez NP) Allergies Arthritis Bilateral knee effusions CAD (coronary artery disease) Colitis Dizziness Essential hypertension GERD (gastroesophageal reflux disease) High cholesterol History of anesthesia reaction History of [place] (myocardial infarction) HLD (hyperlipidemia) HTN (hypertension) IBS (irritable bowel syndrome) Left knee DJD Osteoporosis Positive colorectal cancer screening using Cologuard test Seasonal allergies Vertigo Surgical History Surgical History (Updated 06/07/23 @ 11:22 by Nanci Fabian CMA) H/O heart artery stent History of breast biopsy History of cataract surgery Bilateral 2019 Hx of CABG 1998 Family History Family History Father Myocardial infarction Mother Parkinson disease Father Acute myocardial infarction, Onset Age: 69 Other Heart disease Hypertension Social History Social History Smoking status: Never smoker Alcohol intake: current Alcohol use details: wine every few months Substance use: never Substance use type: does not use Living arrangements: alone Spiritual care concerns: No Comments At time of signature, agree with nursing past medic
--- NOTE | 2023-08-24 17:46 | PC.NURSE ---
+PMS POST OCL AND SLING APPLICATION
== END 2023-08-24 17:44 | disposition home or self-care (01) ==
PROVIDERS: Emergency Provider Nurse Practitioner Family; PCP Internal Medicine
DX: S52.501A Unspecified fracture of the lower end of right radius, initial encounter for closed fracture (principal); S52.611A Displaced fracture of right ulna styloid process, initial encounter for closed fracture; W18.09XA Striking against other object with subsequent fall, initial encounter; I25.10 Atherosclerotic heart disease of native coronary artery without angina pectoris; I10 Essential (primary) hypertension; K21.9 Gastro-esophageal reflux disease without esophagitis; E78.00 Pure hypercholesterolemia, unspecified; I25.2 Old myocardial infarction; E78.5 Hyperlipidemia, unspecified; M17.12 Unilateral primary osteoarthritis, left knee; Z95.5 Presence of coronary angioplasty implant and graft; Z79.82 Long term (current) use of aspirin
CPT/HCPCS: 29125; 73110; 73130; 99214; A4565; G0463

== ENCOUNTER 2025-03-18 11:41 | Emergency (ER) | payer MEDICARE, SELFPAY ==
--- NOTE | ~2025-03-18 | XR_ITS ---
EXAMINATION: XR chest 2V, 03/18/2025 13:03 CDT HISTORY: cough, fevers, congestion x 1 week, fever this am COMPARISON: No comparisons available. Technique: 2 views obtained. Findings: Mild pulmonary venous congestion. No pneumothorax. Moderate cardiomegaly. Mediastinal and hilar contours are within normal limits. Poststernotomy. Impression: Mild CHF Reviewed, dictated and finalized at location A. Impression: Mild CHF
[2025-03-18 11:56] VITALS: BP 127/59; PULSE 75; RESP 16; TEMP 37.6; O2SAT 96
[2025-03-18 12:10] LABS: EDCOVIDSCREEN Negative (Negative); EDINFLUASCREEN Negative (Negative); EDINFLUBSCREEN Negative (Negative)
--- NOTE | 2025-03-18 13:08 | ED.URI ---
HPI - URI/Sore Throat General Chief Complaint: Upper Respiratory Infection Stated Complaint: Sinus Infection Symptoms Time Seen by Provider: 03/18/25 12:50 Source: patient and RN notes reviewed Mode of arrival: ambulatory Limitations: no limitations History of Present Illness HPI Narrative: A 84-year-old female presents Express Care complaining of upper respiratory symptoms for the last 2 weeks. Patient reports symptoms got significantly worse over the weekend. Reports worsening sinus congestion, mucopurulent nasal drainage, cough, fevers. Denies any chest pain, shortness of breath, nausea, vomiting, diarrhea, abdominal pain, body aches, chills, or any other symptoms. Patient has been taking her [id number] allergy medications with some relief. Related Data Home Medications ?Medication ?Instructions ?Recorded ?Confirmed ?Last Taken ?Type amlodipine 10 mg tablet 10 mg PO DAILY 08/22/19 03/18/25 04/28/21 History aspirin 81 mg tablet,delayed 81 mg PO DAILY 08/22/19 10/08/24 04/28/21 History release (Adult Low Dose Aspirin) atenolol 50 mg tablet 50 mg PO DAILY 08/22/19 03/18/25 04/29/21 History atorvastatin 40 mg tablet 40 mg PO DAILY 08/22/19 03/18/25 04/28/21 History lisinopril 40 mg tablet 40 mg PO DAILY 08/22/19 03/18/25 04/28/21 History amitriptyline 10 mg tablet 10 mg PO QHS 06/14/22 10/08/24 Unknown History furosemide 20 mg tablet 10 mg PO DAILY 06/14/22 03/18/25 Unknown History nitroglycerin 0.4 mg sublingual 0.4 mg sublingual Q5M PRN 08/25/23 10/08/24 Unknown History tablet (Nitrostat) rimegepant 75 mg disintegrating 75 mg PO ONCE PRN 08/25/23 10/08/24 Unknown History tablet (Nurtec ODT) fexofenadine 180 mg tablet 180 mg PO DAILY PRN 10/04/23 10/08/24 Unknown History (Maude Allergy) Allergies Allergy/AdvReac Type Severity Reaction Status Date / Time chlorpheniramine Allergy Mild ITCHING Verified 10/08/24 11:18 hydrocodone Allergy Mild ITCHING Verified 10/08/24 11:18 guaifenesin (From Allergy Unknown unknown Verified 03/18/25 12:05 [facility] Expectorant) Grass Allergy Unknown Sneezing Uncoded 10/08/24 11:18 Review of Systems Review of Systems: CONSTITUTIONAL: Positive for fevers. Negative for chills, body aches, or sweats. EYES: Denies visual changes, redness, or discharge. ENT: Positive for congestion. Negative for rhinorrhea, sore throat, or otalgia. CARDIOVASCULAR: Denies chest pain, palpitations, or edema. RESPIRATORY: Positive for cough. Negative for dyspnea or wheezing. GASTROINTESTINAL: Denies abdominal pain, nausea, vomiting, or diarrhea. GENITOURINARY: Denies dysuria or hematuria. SKIN: Denies rash or itching. MUSCULOSKELETAL: Denies back pain, joint pain, or myalgia. NEUROLOGIC: Denies headache, numbness, or weakness. PSYCHIATRIC: Denies anxiety or depression. All other systems reviewed are negative, except as documented in HPI. [facility] Past Medical History Medical History Positive colorectal cancer screening using Cologuard test Essential hypertension Bilateral knee effusions Left knee DJD Arthritis Osteoporosis History of [place] (myocardial infarction) High cholesterol Vertigo Dizziness History of anesthesia reaction Seasonal allergies IBS (irritable bowel syndrome) Colitis CAD (coronary artery disease) HTN (hypertension) HLD (hyperlipidemia) GERD (gastroesophageal reflux disease) Allergies Surgical History Surgical History H/O heart artery stent History of cataract surgery Bilateral 2019 History of breast biopsy Hx of CABG 1998 Family History Family History Father Myocardial infarction Mother Parkinson disease Father Acute myocardial infarction, Onset Age: 69 Other Heart disease Hypertension Social History Social History Smoking status: Never smoker Alcohol intake: current Alcohol use details: wine every few months Substance use: never Substance use type: does not use Living arrangements: alone Spiritual care concerns: No Comments At the time of my signature, I reviewed and agree with the nursing past medical, surgical, social, and family history. There is no relevant family history pertinent to the patient complaint. Exam Narrative: GENERAL: This is a well-nourished, well-developed adult, in no apparent distress. They are non ill-appearing, nontoxic appearing. HEAD: normocephalic, atraumatic. EYES: Sclera clear/white. Vision is grossly intact. Conjunctiva normal bilaterally. Extraocular movements intact. EARS: External ears normal, auditory canals clear and without drainage, TMs without erythema or perforation. Hearing grossly intact. NOSE: External nose normal with no obvious nasal discharge, nasal turbinates erythematous, no rhinorrhea. THROAT: Mucous membranes moist, posterior pharynx boggy without redness or exudate. Uvula is midline. Postnasal drip present. NECK: Neck supple, non-tender without lymphadenopathy, masses or thyromegaly. CARDIOVASCULAR: Regular rate and rhythm without murmurs, gallops, or rubs. RESPIRATORY: Lung sounds diminished to the bases.. Breath sounds equal bilaterally. No wheezes, rales, or rhonchi. SKIN: warm, Dry, intact with no suspicious lesions or rash, good texture and turgor. NEURO: awake, alert, and oriented to person, place and time. There were no obvious focal neurologic abnormalities. EXTREMITIES: No joint tenderness, effusion, or edema noted. BACK: Nontender without deformity. Course Course Emergency Course: Portions of this record may have been created with voice recognition software Level of Care: Express Care Visit Vital Signs Vital signs: Vital Signs Temperature 99.7 F H 03/18/25 11:56 Pulse Rate 75 03/18/25 11:56 Respiratory Rate 16 03/18/25 11:56 Blood Pressure 127/59 L 03/18/25 11:56 Pulse Oximetry 96 03/18/25 11:56 Temperature 99.7 F H 03/18/25 11:56 Pulse Rate 75 03/18/25 11:56 Respiratory Rate 16 03/18/25 11:56 Blood Pressure 127/59 L 03/18/25 11:56 Pulse Oximetry 96 03/18/25 11:56 Oxygen Delivery Room Air 03/18/25 12:06 MDM - URI/Sore Throat MDM Narrative Medical decision making narrative: Rapid COVID and flu were negative. Chest x-ray shows mild congestive heart failure. Patient has a history of CHF, CAD, and bypass surgery. Appears to be baseline for patient. No leg edema noted. No respiratory distress. Patient borderline febrile here at the [facility]. Given her symptoms will go ahead and cover for pneumonia and sinusitis. Will treat with Augmentin and azithromycin. Discussed physical exam findings. Advised supportive measures and signs/symptoms to go to the ER. Pt is appropriate for outpt treatment and f/u. Differential Diagnosis Differential diagnosis: Likely upper respiratory infection, sinusitis, viral infection and other (Pneumonia) Lab Data Attestation: I reviewed the patient's lab results. Labs: Lab Results 03/18/25 Range/Units 12:08 POC Influenza A Ag Negative (Negative) POC Influenza B Ag Negative (Negative) POC SARS CoV-2 Ag Negative (Negative) Imaging Data Radiologist's impression: ITS Impressions Chest X-Ray 03/18/25 13:20 Impression: Mild CHF Discharge Plan Discharge Clinical Impression: Cough productive of purulent sputum Patient Disposition: Home Condition: Stable Instructions: Antibiotic Form, Pneumonia (ED) Additional Instructions: Chest x-ray shows mild congestive heart failure. Take the antibiotics as directed. Finish the course completely even if you start to feel better. You may take up to 1000 mg Tylenol every 6-8 hours for pain or fevers. Do not exceed 1000 mg per dose, do exceed more than 4000 mg of Tylenol in a day. Rest and drink plenty of fluids. He small frequent meals. Follow-up with PCP in 3-5 days COVID and flu were negative today. If you developed worsening shortness of breath, chest pains, fevers, weakness, nausea, vomiting, leg swelling, or any serious concerns please go to the ER immediately. Patient Language: Ukrainian Prescriptions: New azithromycin 250 mg tablet See Rx Instructions .ROUTE .COMPLEX Qty: 6 0RF Rx Instructions: For 250 mg dose pack: take 500 mg today (day 1), then 250 mg for 4 days (days 2-5) amoxicillin-pot clavulanate 875-125 mg tablet 1 tablet PO Q12H 7 Days Qty: 14 0RF No Action amlodipine 10 mg tablet 10 mg PO DAILY aspirin [Adult Low Dose Aspirin] 81 mg tablet,delayed release (DR/EC) 81 mg PO DAILY atenolol 50 mg tablet 50 mg PO DAILY atorvastatin 40 mg tablet 40 mg PO DAILY lisinopril 40 mg tablet 40 mg PO DAILY fexofenadine [Maude Allergy] 180 mg tablet 180 mg PO DAILY PRN furosemide 20 mg tablet 10 mg PO DAILY amitriptyline 10 mg tablet 10 mg PO QHS nitroglycerin [Nitrostat] 0.4 mg tablet, sublingual 0.4 mg sublingual Q5M PRN Rx Instructions: do not exceed 3 doses per episode Nurtec ODT 75 mg tablet,disintegrating 75 mg PO ONCE PRN Rx Instructions: as a single dose cholecalciferol (vitamin D3) 125 mcg (5,000 unit) capsule 125 mcg PO DAILY Qty: 90 3RF gabapentin 300 mg capsule 300 mg PO BID Qty: 180 3RF Follow-up/Referrals: Barbie Barreto NP [Primary Care Provider, Internal Medicine] Time of Disposition: 13:36
== END 2025-03-18 13:41 | disposition home or self-care (01) ==
PROVIDERS: PCP Nurse Practitioner
DX: R05.9 Cough, unspecified (principal); Z20.822 Contact with and (suspected) exposure to COVID-19; I11.0 Hypertensive heart disease with heart failure; I50.9 Heart failure, unspecified; I25.10 Atherosclerotic heart disease of native coronary artery without angina pectoris; I25.2 Old myocardial infarction; E78.00 Pure hypercholesterolemia, unspecified; K21.9 Gastro-esophageal reflux disease without esophagitis; M17.12 Unilateral primary osteoarthritis, left knee; M19.90 Unspecified osteoarthritis, unspecified site; Z95.5 Presence of coronary angioplasty implant and graft
CPT/HCPCS: 71046; 87426; 87804; 99213; G0463